=== PATIENT | female | born 1990 | race Caucasian/White ===

== ENCOUNTER 2019-10-09 21:52 | Inpatient (IN) | payer BC, OTHER, SELFPAY ==
[2019-10-09 22:19] VITALS: BP 121/75; PULSE 92
[2019-10-09 22:31] VITALS: BP 117/72; PULSE 98
[2019-10-09 22:48] VITALS: BMI 38.6
--- NOTE | 2019-10-09 22:54 | LDADM ---
This patient, Sindy Hogan, was admitted to Labor/Delivery/Recovery 105 on 10/09/19 at 22:28. Plans for labor, pain management and were discussed with patient. Patient/family oriented to hospital policies and general routines including ID bracelet, bed and alarms, visiting hours, pain management, procedures, bathroom and other care routines, personal items, smoking policy, room service/diet and guest tray routines, security routines, and visiting hours. Patient/Family are encouraged to report perceived risks to care and to ask questions if they do not understand what they are told or what they should do. See OBIX for further documentation.
--- NOTE | 2019-10-09 22:55 | WPDOBADMIT ---
Obstetrics - Admit Note Admission Note: record reviewed. No pertinent additions to the history and/or any subsequent changes in the physical findings that are not consistent with the expected course of the were found. Pt arrived with SROM, hx of leewaylon 2016, GDM controlled on insulin, hx of CHTN Additions to the history and/or subsequent changes in the physical findings follow. None.
[2019-10-09 23:01] VITALS: BP 133/80; PULSE 84
[2019-10-09 23:20] LABS: Glucose Point of Care 92 (65-105)
[2019-10-09 23:23] LABS: Basophils Percent Auto 0.2 % (0.2-1.2); Eosinophils Absolute Auto 0.1 K/mm3 (0-0.3); Eosinophils Percent Auto 0.6 % (0-4.4); Hematocrit 31.2 % (37.0-47.0); Hemoglobin 10.3 g/dL (12.0-15.0); Immature Granulocyte Absolute 0.02 K/mm3 (0.00-0.031); Immature Granulocyte Percent A 0.2 % (0-0.5); Lymphocytes Absolute Auto 1.88 K/mm3 (0.9-3.2); Lymphocytes Percent Auto 19.8 % (18.3-44.2); Mean Corpuscular Hemoglobin 29.3 pg (26-34); Mean Corpuscular Volume 88.9 fl (80-100); Mean Platelet Volume 10.3 fl (7.4-10.4); Monocytes Absolute Auto 0.6 K/mm3 (0.1-0.6); Monocytes Percent Auto 6.7 % (2.6-8.5); Neutrophils Absolute Auto 6.9 K/mm3 (1.3-6.7); Neutrophils Percent Auto 72.5 % (45.5-73.1); Platelet Count Result 270 k/mm3 (150-375); Red Blood Count 3.51 M/mm3 (4.2-5.4); Red Cell Distribution Width 13.8 % (11.5-14.5); White Blood Count 9.5 K/mm3 (4.5-10.0)
[2019-10-09] MEDS: LACTATED RINGERS 1,000 ML 125 ML IV CONT (23:24)
[2019-10-09] MEDS: AMPICILLIN 2 GM/NS 100 ML 2 GM/100 ML BAG IVPB (23:25)
[2019-10-09 23:31] VITALS: BP 131/74; PULSE 92
[2019-10-09] MEDS: INSULIN HUMAN NPH (*BKC) 100 UNITS/ML 14 UNITS SUB-Q (23:54)
[2019-10-10] VITALS (85 sets, daily range): BP systolic 88–135; BP diastolic 36–88; PULSE 60–108; RESP 17; TEMP 36.4–37; O2SAT 85–100
[2019-10-10] MEDS: AMPICILLIN 1 GM/NS 50 ML 1 GM/50 ML BAG IVPB ×3 (03:12→11:26)
[2019-10-10] MEDS: OXYTOCIN 30 UNITS/NS 500 ML 30 UNITS/500 ML BAG IV CONT ×2 (03:22→16:03)
[2019-10-10 03:27] LABS: Glucose Point of Care 87 (65-105)
[2019-10-10] MEDS: LACTATED RINGERS 1,000 ML 125 ML IV CONT (05:53)
--- NOTE | 2019-10-10 06:00 | WPDANESEPPF ---
Anes - Initial Pre Proc Eval Procedure: labor epidural Date/Time: 10/10/19 06:00 Surgeon: Funmi Becerra MD Pre Op Diagnosis: pain during labor Pre Op Diagnosis: Leaking fluid Patient Data Age: 29 Gender: F Height: 1.63 m Weight: 102 kg Last Vital Signs Temp 36.7 C 10/10/19 03:16 Pulse 96 10/10/19 05:59 BP 127/82 10/10/19 05:59 Pulse Ox 100 10/10/19 05:58 Allergies Allergy/AdvReac Type Severity Reaction Status Date / Time Sulfa (Sulfonamide Allergy Intermediate HIVES,SWELL Verified 10/09/19 23:35 Antibiotics) ING Home Medications Medication Instructions Recorded Confirmed Type Multivitamins 1 tab-cap PO DAILY 10/09/19 10/09/19 History insulin NPH isoph U-100 human 14 unit SUBCUT HS 10/09/19 10/09/19 History [Novolin N NPH U-100 Insulin] Laboratory Tests 10/09/19 10/09/19 10/09/19 23:15 23:15 23:15 WBC 9.5 K/mm3 K/mm3 (4.5-10.0) RBC 3.51 M/mm3 L M/mm3 (4.2-5.4) Hgb 10.3 g/dL L g/dL (12.0-15.0) Hct 31.2 % L % (37.0-47.0) MCV 88.9 fl fl (80-100) MCH 29.3 pg pg (26-34) MCHC 33.0 g/dl g/dl (32-36) RDW 13.8 % % (11.5-14.5) Plt Count 270 k/mm3 k/mm3 (150-375) MPV 10.3 fl fl (7.4-10.4) Immature Gran % (Auto) 0.2 % % (0-0.5) Neut % (Auto) 72.5 % % (45.5-73.1) Lymph % (Auto) 19.8 % % (18.3-44.2) [place] % (Auto) 6.7 % % (2.6-8.5) Eos % (Auto) 0.6 % % (0-4.4) Baso % (Auto) 0.2 % % (0.2-1.2) Lymph # (Auto) 1.88 K/mm3 K/mm3 (0.9-3.2) [place] # (Auto) 0.6 K/mm3 K/mm3 (0.1-0.6) Eos # (Auto) 0.1 K/mm3 K/mm3 (0-0.3) Baso # (Auto) 0.0 K/mm3 K/mm3 (0.0-0.1) Abs Immat Gran (auto) 0.02 K/mm3 K/mm3 (0.00-0.031) Absolute Neuts (auto) 6.9 K/mm3 H K/mm3 (1.3-6.7) Absolute Nucleated RBC 0.0 K/mm3 K/mm3 (0.0-0.012) Nucleated RBC % 0.0 % % (0.0-0.2) POC Capillary Glucose RPR Pending Blood Type A Positive Antibody Screen Negative 10/09/19 10/10/19 23:18 03:10 WBC RBC Hgb Hct MCV MCH MCHC RDW Plt Count MPV Immature Gran % (Auto) Neut % (Auto) Lymph % (Auto) [place] % (Auto) Eos % (Auto) Baso % (Auto) Lymph # (Auto) [place] # (Auto) Eos # (Auto) Baso # (Auto) Abs Immat Gran (auto) Absolute Neuts (auto) Absolute Nucleated RBC Nucleated RBC % POC Capillary Glucose 92 mg/dl mg/dl 87 mg/dl mg/dl (65-105) (65-105) RPR Blood Type Antibody Screen Patient hx anesthesia problems: none Family hx anesthesia problems: none [facility] Past Medical History Medical History (Updated 10/10/19 @ 06:00 by Coleman Lubin DO) Gestational diabetes Family History Family History (Updated 10/09/19 @ 22:58 by Karen Chang RN) Mother Acute myocardial infarction Hypertension Father History of blood clots Grandparent Colon cancer Other Unknown family medical history Social History Social History Smoking status: Never smoker Substance use: never Gender identity (if verbalized by the patient): Female Spiritual care concerns: No Anes - Eval Final PreProcedure Day of Procedure 10/10/19 06:00 Patient weight: obese ASA classification: III Anesthesia type and monitoring: regional epidural Informed Consent: The patient's anesthetic plan and its attendant risks and benefits were discussed with the patient/family/POA. Questions were solicited and answers provided to the satisfaction of the patient/family/POA.
[2019-10-10 06:46] LABS: Glucose Point of Care 93 (65-105)
[2019-10-10 07:47] LABS: Rapid Plasma Reagin Non-Reactive (NonReactive)
[2019-10-10 11:12] LABS: Glucose Point of Care 64 (65-105)
[2019-10-10 15:19] LABS: Glucose Point of Care 68 (65-105)
--- NOTE | 2019-10-10 16:02 | PM.OBPRVD ---
OB - Delivery Note Procedure Delivery date: 10/10/19 events: Labor < 37 Weeks, Gestational Diabetes and Prolonged Rupture of Membrane Delivery augmentation: pitocin Delivery monitor: external FHT and external uterine Episiotomy description: None Laceration description: Perineal - 2nd Degree Delivery repair: vicryl Estimated blood loss (mL): 72 Anesthesia type: Epidural Narrative: Mother and baby in stable condition. Cord clamped at 2 minutes. Cord gasses collected and handed off to staff. Baby Date of : 10/10/19 Time of : 15:34 Weeks of gestation at delivery: 36 Infant gender: Male presentation: vertex position: Left Occiput Anterior Placenta delivery description: Spontaneous cord vessel description: 3 Vessels
[2019-10-10] MEDS: WITCH HAZEL 40 PADS 1 PAD TOPICAL (18:27)
[2019-10-10] MEDS: BENZOCAINE 20% AER SPR (*SP) 56 GM CAN 1 SPRAY TOPICAL (18:27)
--- NOTE | 2019-10-10 19:04 | OBPPTRN ---
Patient transferred to post room #283 via wheelchair - was kept in level 2. Support person present. Oriented to unit, room, information board, rooming in, admission packet and security measures. Patient verbalizes understanding.
[2019-10-10] MEDS: ACETAMINOPHEN 325 MG TABLET 650 MG PO (19:42)
[2019-10-10 20:54] LABS: Glucose Point of Care 77 (65-105)
[2019-10-11] MEDS: IBUPROFEN 600 MG TABLET PO ×2 (00:40→07:22)
[2019-10-11 05:03] LABS: Hematocrit 30.8 % (37.0-47.0)
[2019-10-11 07:21] LABS: Glucose Point of Care 100 (65-105)
[2019-10-11] MEDS: MULTIVIT/MIN/PREN/FOL AC/IRON TABLET 1 TAB PO (07:22)
[2019-10-11 08:20] VITALS: BP 131/88; PULSE 85; RESP 18; TEMP 37.3; O2SAT 100
--- NOTE | 2019-10-11 08:21 | PM.OBPNVD ---
OB - PN: Subj Subjective Date/time seen: 10/11/19 08:21 OB - PN: Obj Data Labs CBC & Chem 7: 10/11/19 04:19 Labs: Laboratory Results - last 24 hr 10/10/19 10/10/19 10/10/19 11:05 12:04 15:17 Hgb Hct POC Capillary Glucose 64 L 77 68 10/11/19 10/11/19 04:19 07:15 Hgb 10.0 L Hct 30.8 L POC Capillary Glucose 100 OB - PN A/P Assessment and Plan (1) Vaginal delivery: Code(s): O80 - Encounter for full-term uncomplicated delivery Status: Acute Plan day: 1 Plan: routine care and discharge home Comments: Baby was transferred. Pt desires early discharge. She is doing well. No complaints and stable. Precautions discussed. Time Spent With Patient Time: Total time spent is greater than 50% in coordination of care (as documented) at patient's floor/unit and/or counseling patient: Time with patient: less than 15 minutes Review of Systems Review of Systems: All systems reviewed & are unremarkable except as noted in HPI and below Exam Narrative: Exam Narrative: Fundus firm and vaginal flow controlled. Const: General: comfortable Chest: Breast/axilla inspection: normal inspection of the breasts Resp: Effort & Inspection: normal respiratory effort Cardio: Rate: regular rate Psych: Appearance: grossly normal Affect: normal affect Attitude: cooperative Judgement: Good judgement present (Psych)
--- NOTE | 2019-10-11 09:25 | PC.NURSE ---
Mother is pumping due to transfer, she has a pump for home use. Mother reports she is comfortable with pumping, she does not have any difficulties or discomfort. Reviewed instructions on breast pump care and usage, pumping schedule, nipple care, and collection and storage of breast milk. Encouraged breast massage and manual expression to stimulate supply. Pumping log provided and reviewed. Discussed correct flange size, placement and draw. Patient verbalizes and demonstrates understanding of instructions.
--- NOTE | 2019-10-30 08:38 | PM.OBDSVD ---
DS: Admitting Diagnosis Admitting Diagnosis Admitting Diagnosis: Encounter for supervision of normal , unspecified, third trimester OB - DS: Summary OB Procedures : PTL Mgmt OB Procedures Intrapartum: Spontaneous Vag Delivery OB Procedures: : None Time Spent with Patient Time attestation: Total time spent providing and/or coordinating discharge services: DS: Data Data Completed and Pending Completed studies during hospitalization: Pending at discharge 10/10/19 15:42 Surgical [PTH] Routine Discharge Plan Discharge Attending physician on discharge: Jia Rodgers Consulting providers: Britany Perdomo ; Jia Rodgers ; Coleman Lubin Discharging Clinician: Jia Rodgers Patient Disposition: Home, Self-Care Activity: pelvic rest Diet: as tolerated Discharge Instructions: Education: Mom and Baby Guide Given to: Mother Follow-Up: Call your delivering provider's office for an appointment to be seen. BREAST CARE: 1. Wear a snug supportive bra. 2. For engorgement discomfort: Breast Feeding: A. Apply warm moist washcloths B. Express milk as needed to relieve engorgement C. Wear loose clothing 3. For sore nipples: A. Identify correct latch-on B. Apply warm moist washcloths before and after nursing C. Air dry nipples after nursing D. May apply Lansinoh cream to nipples PERINEAL CARE: 1. Until bleeding stops, use your javier bottle after urinating 2. Change your pad frequently throughout the day 3. You may take sitz baths several times a day (fill your bathtub with warm water and soak for 20 minutes.) Do NOT bathe in the water 4. No tub baths until seen by your physician - You may shower ACTIVITY: 1. Rest as much as possible. 2. Do not exercise or lift anything heavier than your baby (such as laundry or other children.) 3. Avoid stairs or driving as much as possible. 4. Do not put anything into the vagina. No douching, tampons, or sexual activity until seen by physician. NOTIFY PHYSICIAN IF YOU HAVE ANY QUESTIONS OR IF ANY OF THE FOLLOWING SYMPTOMS OCCUR: 1. If your stitches become red, swollen, or more painful than what you have experienced in the hospital. 2. If your vaginal bleeding becomes foul smelling. 3. If your vaginal bleeding becomes more heavy than a period or if your bleeding changes from pink to bright red. However, you may pass an occasional walnut-sized clot once or twice for the first week . 4. If you experience a sharp, shooting pain in you calves. 5. If you discover a hard, reddened area on your breast or if you experience flu-like symptoms. DIET: 1. Eat regular, well-balanced meals. 2. Drink plenty of fluids daily. If , drink to thirst. Stand Alone Forms: General Discharge Information Follow-up/Referrals: Jia Rodgers CNM [Certified Nurse Professor Of Engineering] - Discharge Medications: Continued Multivitamins 1 tab-cap PO DAILY RF: 0 Discontinued Novolin N NPH U-100 Insulin 100 unit/mL Suspension 14 unit SUBCUT HS RF: 0 Date of admission: 10/09/19 22:28 Primary Care Provider: PHYSICIAN,GROOMING ASSISTANT Admitting Provider: Funmi Becerra Discharge Date/Time: 10/11/19 09:23 Attending physician on admission: Funmi Becerra
== END 2019-10-11 09:23 | disposition home or self-care (01) | DRG 805 ==
LOC: ANHLDR 22:28 → ANHOB2 10-10 19:07
PROVIDERS: Advanced Practice Midwife; Admitting Provider Obstetrics & Gynecology; Visit Provider Obstetrics & Gynecology
DX: O42.913 Preterm premature rupture of membranes, unspecified as to length of time between rupture and onset of labor, third trimester (principal); O60.14X0 Preterm labor third trimester with preterm delivery third trimester, not applicable or unspecified; Z37.0 Single live birth; Z3A.36 36 weeks gestation of pregnancy; O24.424 Gestational diabetes mellitus in childbirth, insulin controlled; O99.824 Streptococcus B carrier state complicating childbirth; O70.1 Second degree perineal laceration during delivery; O99.214 Obesity complicating childbirth; E66.9 Obesity, unspecified
CPT/HCPCS: 36415; 85014; 85018; 85025; 86592; 86850; 86900; 86901; 88307; A9270; J0290; J1815; J2590; J2795; J7120

== ENCOUNTER 2025-01-26 09:27 | Inpatient (IN) | payer OTHER, SELFPAY ==
[2025-01-26] VITALS (101 sets, daily range): BP systolic 93–148; BP diastolic 36–99; PULSE 55–166; TEMP 36.8–37.3; O2SAT 87–100; BMI 34.4
[2025-01-26] MEDS: AMPICILLIN SODIUM 2 GM in SODIUM CHLORIDE 0.9% IV 100 ML 200 ML IVPB (10:15)
[2025-01-26] MEDS: LACTATED RINGERS 1,000 ML 125 ML IV CONT ×2 (10:22→13:29)
[2025-01-26] MEDS: OXYTOCIN 30 UNITS/NS 500 ML 30 UNITS/500 ML BAG IV CONT (10:22)
--- NOTE | 2025-01-26 10:24 | LDADM ---
This patient, Sindy Hogan, was admitted to Labor/Delivery/Recovery 105 on 01/26/25 at 09:27. Plans for labor, pain management and were discussed with patient. Patient/family oriented to hospital policies and general routines including ID bracelet, bed and alarms, visiting hours, pain management, procedures, bathroom and other care routines, personal items, smoking policy, room service/diet and guest tray routines, infant security routines, and visiting hours. Patient/Family are encouraged to report perceived risks to care and to ask questions if they do not understand what they are told or what they should do. See OBIX for further documentation.
[2025-01-26 11:43] LABS: Hematocrit 28.4 % (37.0-47.0); Hemoglobin 8.9 g/dL (12.0-15.0); Immature Granulocyte Percent A 0.5 % (0-0.5); Lymphocytes Absolute Auto 1.48 K/mm3 (0.9-3.2); Mean Corpuscular HGB Conc 31.3 g/dl (32-36); Mean Corpuscular Hemoglobin 27.2 pg (26-34); Mean Corpuscular Volume 86.9 fl (80-100); Nucleated Red Blood Cells Absolute Auto 0.000 K/mm3 (0.0-0.012); Nucleated Red Blood Cells Perc 0.0 % (0.0-0.2); Platelet Count Result 285 k/mm3 (150-375); Red Blood Count 3.27 M/mm3 (4.2-5.4); White Blood Count 8.9 K/mm3 (4.5-10.0)
[2025-01-26 11:55] LABS: Alanine Aminotransferase 13 U/L (6-35); Albumin Level 3.4 g/dL (3.5-5.1); Alkaline Phosphatase 117 U/L (38-126); Anion Gap 3 mmol/L (4-12); Aspartate Amino Transferase 20 U/L (14-36); Bilirubin,Total 0.7 mg/dL (0.2-1.3); Blood Urea Nitrogen 6 mg/dL (7-17); Calcium 8.7 mg/dL (8.4-10.2); Carbon Dioxide 23 mmol/L (22-30); Chloride 105 mmol/L (98-107); Estimated CRCL calculation 182 ml/min; Estimated Glomerular Filt Rate > 60; Glucose 84 mg/dL (65-110); Potassium 3.9 mmol/L (3.4-5.0); Sodium 131 mmol/L (137-145); Total Protein 6.6 g/dL (6.3-8.2)
--- NOTE | 2025-01-26 12:14 | WPDOBADMIT ---
Obstetrics - Admit Note Admission Note: record reviewed. No pertinent additions to the history and/or any subsequent changes in the physical findings that are not consistent with the expected course of the were found. Additions to the history and/or subsequent changes in the physical findings follow. Admit for gestational htn, sve /-2 AROM large amount of clear, odorless fluid, anticipate vaginal delivery
[2025-01-26 12:24] LABS: Syphilis IgG/IgM Antibody Non-Reactive (Nonreactive)
[2025-01-26 12:45] LABS: Uric Acid 3.8 mg/dL (2.5-7.5)
[2025-01-26] MEDS: AMPICILLIN SODIUM 1 GM in SODIUM CHLORIDE 0.9% IV 50 ML 100 ML IVPB (13:55)
--- NOTE | 2025-01-26 17:18 | PM.OBPRVD ---
OB - Vaginal Delivery Note Procedure Delivery date: 01/26/25 Events: Gestational Hypertension Induction method: AROM and Per Pitocin Protocol Delivery monitor: External FHT and Internal Uterine Route of delivery: Episiotomy description: None Laceration Description: Perineal - 1st Degree Delivery repair: vicryl Specimen: No Quantitative Blood Loss (ml): 150 Anesthesia type: Epidural Disposition: Floor Complications: No immediate complications [place] Baby Date of : 01/26/25 Time of : 16:58 Gestational Age by Date: 37 gender: Female Weight (pounds): 7 Weight (ounces): 5 presentation: vertex position: Right Occiput Anterior Placenta delivery description: Spontaneous Cord Vessel Description: 3 Vessels and Delayed Cord Clamping
--- NOTE | 2025-01-26 19:40 | PC.NURSE ---
This RN called Brandyn Perdomo to update on patient status. Per Brandyn Perdomo patient may discharge home four hours post delivery with precautions and to follow up with her in the office next week.
--- NOTE | 2025-01-26 21:44 | PC.NURSE ---
Patient discharged home. Delivered in stable condition from order from Brandyn Perdomo. Discharge instructions reviewed with patient and patient voiced understanding. All questions and concerns answered. Patient instructed to call provider or come back to the hospital if any concerns.
--- NOTE | 2025-01-29 17:14 | PM.OBDSVD ---
DS: Admitting Diagnosis Discharge Date 01/26/25 Admitting Diagnosis GHTN, IOL DS: Discharge Diagnosis Discharge Diagnosis (1) Vaginal delivery: Code(s): O80 - Encounter for full-term uncomplicated delivery Status: Acute OB - DS: Summary OB Procedures : None OB Procedures Intrapartum: Spontaneous Vag Delivery OB Procedures: : None Peripartum Data Laceration Description: Perineal - 1st Degree Episiotomy description: None Time Spent with Patient Time attestation: Total time spent providing and/or coordinating discharge services: Discharge Plan Discharge Attending physician on discharge: Britany Perdomo Consulting providers: Britany Perdomo Discharging Clinician: Britany Perdomo Patient Disposition: Home Activity: other - see discharge instructions Diet: other - see discharge instructions Wound Care Instructions: other - see discharge instructions Discharge Instructions: Education: Mom and Baby Guide Given to: patient Follow-Up: Call your delivering provider's office for an appointment to be seen in: next week BREAST CARE: * Wear a snug supportive bra. * For engorgement discomfort: Breast Feeding: * Apply warm moist washcloths * Express milk as needed to relieve engorgement * Wear loose clothing Bottle Feeding: * May apply ice packs * For sore nipples: * Identify correct latch-on * Apply warm moist washcloths before and after nursing * Air dry nipples after nursing * May apply Lansinoh cream to nipples EPISIOTOMY/PERINEAL CARE: * Until bleeding stops, use your javier bottle after urinating * Change your pad frequently throughout the day * You may take sitz baths several times a day (fill your bathtub with warm water and soak for 20 minutes.) Do NOT bathe in the water * No tub baths until seen by your physician - You may shower ACTIVITY: * Rest as much as possible. * Do not exercise or lift anything heavier than your baby (such as laundry or other children.) * Avoid stairs or driving as much as possible. * Do not put anything into the vagina. No douching, tampons, or sexual activity until seen by physician. NOTIFY PHYSICIAN IF YOU HAVE ANY QUESTIONS OR IF ANY OF THE FOLLOWING SYMPTOMS OCCUR: * If your episiotomy or incision becomes red, swollen, or more painful than what you have experienced in the hospital. * If your vaginal bleeding becomes foul smelling. * If your vaginal bleeding becomes more heavy than a period or if your bleeding changes from pink to bright red. However, you may pass an occasional walnut-sized clot once or twice for the first week . * If you experience a sharp, shooting pain in you calves. * If you discover a hard, reddened area on your breast or if you experience flu-like symptoms. DIET: * Eat regular, well-balanced meals. * Drink plenty of fluids daily. If , drink to thirst. Pain Control: You may take Tylenol 650 mg by mouth every 4-6 hours for discomfort and/or Ibuprofen 600 mg by mouth every 6-8 hours for discomfort. You may continue your Dermablast spray as needed for discomfort and Witch Farrah pads as needed for disomfort. May use Lanolin as needed to breasts for sore nipples. May use Simethicone 1 chewable tablet by mouth as needed for gas pains. Patient Language: [place] Stand Alone Forms: General Discharge Information Follow-up/Referrals: Britany Perdomo CNM [Certified Nurse [employer], FORESTRY AND WILDLIFE MANAGER] Discharge Medications: Continued Multivitamins 1 tab-cap PO DAILY ferrous sulfate [Feosol] 325 mg (65 mg iron) tablet 325 mg PO DAILY Date of admission: 01/26/25 09:27 Primary Care Provider: Jeet,Derrick Vuong Admitting Provider: Jose Antonio Becerra Attending physician on admission: Jose Antonio Becerra Condition: Stable
== END 2025-01-26 21:20 | disposition home or self-care (01) | DRG 807 ==
PROVIDERS: Advanced Practice Midwife; Admitting Provider Obstetrics & Gynecology; PCP Family Medicine; Visit Provider Obstetrics & Gynecology
DX: O13.4 Gestational [pregnancy-induced] hypertension without significant proteinuria, complicating childbirth (principal); Z37.0 Single live birth; Z3A.37 37 weeks gestation of pregnancy; O70.0 First degree perineal laceration during delivery; O99.824 Streptococcus B carrier state complicating childbirth
CPT/HCPCS: 36415; 80053; 84550; 85025; 86593; 86850; 86900; 86901; A9270; J0290; J2590; J2795; J7120

== ENCOUNTER 2025-02-05 09:49 | Observation (INO) | payer OTHER, SELFPAY ==
[2025-02-05] VITALS (29 sets, daily range): BP systolic 138–163; BP diastolic 71–91; PULSE 58–75; O2SAT 93–96
[2025-02-05 10:17] LABS: Hematocrit 29.9 % (37.0-47.0); Hemoglobin 9.3 g/dL (12.0-15.0); Immature Granulocyte Percent A 0.5 % (0-0.5); Lymphocytes Absolute Auto 1.47 K/mm3 (0.9-3.2); Mean Corpuscular HGB Conc 31.1 g/dl (32-36); Mean Corpuscular Hemoglobin 26.6 pg (26-34); Mean Corpuscular Volume 85.4 fl (80-100); Nucleated Red Blood Cells Absolute Auto 0.000 K/mm3 (0.0-0.012); Nucleated Red Blood Cells Perc 0.0 % (0.0-0.2); Platelet Count Result 482 k/mm3 (150-375); Red Blood Count 3.50 M/mm3 (4.2-5.4); White Blood Count 9.6 K/mm3 (4.5-10.0)
[2025-02-05 10:28] LABS: Alanine Aminotransferase 18 U/L (6-35); Albumin Level 4.0 g/dL (3.5-5.1); Alkaline Phosphatase 123 U/L (38-126); Anion Gap 8 mmol/L (4-12); Aspartate Amino Transferase 22 U/L (14-36); Bilirubin,Total 1.0 mg/dL (0.2-1.3); Blood Urea Nitrogen 9 mg/dL (7-17); Calcium 9.0 mg/dL (8.4-10.2); Carbon Dioxide 24 mmol/L (22-30); Chloride 106 mmol/L (98-107); Estimated Glomerular Filt Rate > 60; Glucose 94 mg/dL (65-110); Potassium 3.5 mmol/L (3.4-5.0); Sodium 138 mmol/L (137-145); Total Protein 7.4 g/dL (6.3-8.2); Uric Acid 6.1 mg/dL (2.5-7.5)
--- NOTE | 2025-02-05 10:42 | PC.NURSE ---
Brandyn Perdomo CNM notified of pts BPs and lab results. Orders received.
[2025-02-05] MEDS: LABETALOL HCL 100 MG TABLET 200 MG PO ×2 (10:48→14:40)
--- NOTE | 2025-02-05 12:24 | PC.NURSE ---
Brandyn Perdomo notified of consistent high BPs. Orders received and will continue to monitor.
--- NOTE | 2025-02-05 14:34 | PC.NURSE ---
Brandyn Perdomo notified of pts BPs remaining unchanged. Orders received. Will continue to monitor.
--- NOTE | 2025-02-05 15:42 | PC.NURSE ---
Brandyn Perdomo CNM called and was updated on pts BPs. Orders received. Plan to DC to home.
--- NOTE | 2025-02-06 14:25 | P.PNOB_ITS ---
OB - Triage/Final Diagnosis Visit Information Date of evaluation: 02/05/25 Reason for evaluation: other ( HTN) Comments/Additional reasons for admission: I have assessed the risk for this patient, Sindy Hogan, and determined that she would benefit from observation care. Evaluation Laboratory results: Laboratory Tests 02/05/25 09:59 WBC 9.6 RBC 3.50 L Hgb 9.3 L Hct 29.9 L MCV 85.4 MCH 26.6 MCHC 31.1 L RDW 13.2 Plt Count 482 H D MPV 8.3 Immature Gran % (Auto) 0.5 Neut % (Auto) 79.5 H Lymph % (Auto) 15.3 L [place] % (Auto) 3.4 Eos % (Auto) 0.9 Baso % (Auto) 0.4 Lymph # (Auto) 1.47 [place] # (Auto) 0.3 Eos # (Auto) 0.1 Baso # (Auto) 0.0 Abs Immat Gran (auto) 0.05 H Absolute Neuts (auto) 7.6 H Absolute Nucleated RBC 0.000 Nucleated RBC % 0.0 Sodium 138 Potassium 3.5 Chloride 106 Carbon Dioxide 24 Anion Gap 8 BUN 9 Creatinine 0.54 L Estim Creat Clear Calc Not Reportable Estimated GFR > 60 Glucose 94 Uric Acid 6.1 Calcium 9.0 Total Bilirubin 1.0 AST 22 ALT 18 Alkaline Phosphatase 123 Total Protein 7.4 Albumin 4.0 Vital signs: Vital Signs - 24 hr 02/05/25 14:31 02/05/25 14:40 02/05/25 14:41 Pulse Rate 65 70 Blood Pressure 155/80 H Pulse Oximetry 96 02/05/25 14:46 02/05/25 15:01 02/05/25 15:16 Pulse Rate 65 71 70 Blood Pressure 156/85 H 159/88 H 163/83 H Pulse Oximetry 02/05/25 15:31 02/05/25 15:46 Pulse Rate 66 70 Blood Pressure 138/78 146/81 H Pulse Oximetry
== END 2025-02-05 16:08 | disposition home or self-care (01) ==
LOC: ANHOBOP 10:04 → ANHOBPP 10:04
PROVIDERS: Admitting Provider Obstetrics & Gynecology; PCP Family Medicine; Visit Provider Obstetrics & Gynecology
DX: O16.5 Unspecified maternal hypertension, complicating the puerperium (principal)
CPT/HCPCS: 36415; 80053; 84550; 85025; A9270; G0378; G0379